=== PATIENT | female | born 1985 | race African-American/Black ===

== ENCOUNTER 2022-07-12 14:20 | Emergency (ER) | payer OTHER ==
[~2022-07-12] VITALS: Ht 170.2 cm; Wt 64.9 kg
[2022-07-12 14:29] VITALS: O2SAT 100
[2022-07-12] MEDS ORDERED: SODIUM CHLORIDE 0.9% 1000ML 1,000 ML IV STA (16:54)
== END 2022-07-12 17:30 | disposition home or self-care (01) ==
LOC: ER 14:53
DX: J18.9 Pneumonia, unspecified organism (principal); R07.9 Chest pain, unspecified; F17.200 Nicotine dependence, unspecified, uncomplicated; Z88.6 Allergy status to analgesic agent
CPT/HCPCS: 71045; 93005; 99283